=== PATIENT | male | born 1940 | race Caucasian/White ===

== ENCOUNTER 2021-04-16 11:04 | Outpatient (REF) | payer MEDICARE, SELFPAY ==
[2021-04-16 14:07] LABS: Hematocrit 50.1 % (42-52); Hemoglobin 15.9 g/dl (14.0-18.0); Mean Corpuscular HGB Conc 31.7 g/dl (31.0-36.0); Mean Corpuscular Hemoglobin 26.8 pg (27.0-33.0); Mean Corpuscular Volume 84.5 fL (80-98); Mean Platelet Volume 11.3 fL (9.4-12.4); Platelet Count 155 X10*3/uL (160-400); Red Blood Count 5.93 X10*6/uL (4.60-5.80); Red Cell Distribution Width 14.5 % (11.0-16.0); White Blood Count 5.9 X10*3/uL (4.8-10.8)
[2021-04-16 14:21] LABS: Alanine Aminotransferase 29 U/L (0-40); Albumin Level 4.5 g/dL (3.5-5.0); Alkaline Phosphatase 87 U/L (39-117); Anion Gap 15 (12-20); Aspartate Amino Transferase 32 U/L (5-37); Bilirubin Total 1.5 mg/dL (0.0-1.0); Blood Urea Nitrogen 34 mg/dL (9-16); Calcium 9.6 mg/dL (8.4-10.2); Carbon Dioxide 26 mmol/L (22-29); Chloride 103 mmol/L (96-108); Estimated Glomerular Filt Rate > 60; Glucose Random 78 mg/dL (60-115); Potassium 4.1 mmol/L (3.3-5.1); Sodium 140 mmol/L (135-145); Total Protein 7.3 g/dL (6.5-8.0)
== END 2021-04-16 11:05 | disposition home or self-care (01) ==
LOC: HO.HMGCLDS 11:04
PROVIDERS: PCP Internal Medicine; Visit Provider Internal Medicine
DX: I50.9 Heart failure, unspecified (principal)
CPT/HCPCS: 36415; 80053; 85027

== ENCOUNTER 2022-01-06 13:36 | Outpatient (REF) | payer MEDICARE, SELFPAY ==
--- NOTE | ~2022-01-06 | US_ITS ---
EXAMINATION: US DUPLEX LOWER EXTREMITY ARTERY/GRAFT LIMITED, bilateral CLINICAL INFORMATION: Chronic ulcer right leg. COMPARISON: None TECHNIQUE: Real-time ultrasound and Doppler techniques (integrating B-mode 2-D vascular images, Doppler spectral analysis and color flow Doppler imaging) were utilized to interrogate the lower extremities. FINDINGS: Right lower extremity: Common femoral artery: 73.0 cm/sec; multiphasic waveform Profunda artery: 79.6 cm/sec; multiphasic waveform Superficial femoral artery proximal: 71.3 cm/sec; multiphasic waveform Superficial femoral artery mid portion: 56.6 cm/sec; multiphasic waveform Superficial femoral artery distal: 58.8 cm/sec; multiphasic waveform Popliteal artery: 58.0 cm/sec; multiphasic waveform Posterior tibial artery: 63.2 cm/sec; multiphasic waveform Peroneal artery: 44.8 cm/sec; multiphasic waveform Left lower extremity: Common femoral artery: 77.4 cm/sec; multiphasic waveform Profunda artery: 63.7 cm/sec; multiphasic waveform Superficial femoral artery proximal: 60.4 cm/sec; multiphasic waveform Superficial femoral artery mid portion: 65.9 cm/sec; multiphasic waveform Superficial femoral artery distal: 62.0 cm/sec; multiphasic waveform Popliteal artery: 32.1 cm/sec; multiphasic waveform Posterior tibial artery: 56.4 cm/sec; multiphasic waveform Peroneal artery: 36.1 cm/sec; multiphasic waveform ADDITIONAL FINDINGS: Mild atherosclerotic plaquing bilaterally. US/US arterial duplex LE IMPRESSION: The arteries to the lower extremities are patent bilaterally with evidence of what appears to be mild peripheral arterial disease. Greater sensitivity and specificity can be obtained with pre-and post exercise PVRs with KELLY calculations. Also consider dedicated CTA for further anatomical detail.
== END 2022-01-06 13:37 | disposition home or self-care (01) ==
LOC: HO.US 13:36
PROVIDERS: Visit Provider Internal Medicine
DX: L97.919 Non-pressure chronic ulcer of unspecified part of right lower leg with unspecified severity (principal)
CPT/HCPCS: 93925

== ENCOUNTER 2022-04-08 12:36 | Outpatient (RCR) | payer MEDICARE, SELFPAY | END 2022-04-28 14:10 | disposition home or self-care (01) | LOC: HO.WCC 12:36 | PROVIDERS: PCP Internal Medicine; Visit Provider Physician Assistant | DX: L97.821 Non-pressure chronic ulcer of other part of left lower leg limited to breakdown of skin (principal); S51.801D Unspecified open wound of right forearm, subsequent encounter; I10 Essential (primary) hypertension; R60.0 Localized edema; Z95.0 Presence of cardiac pacemaker; Z95.1 Presence of aortocoronary bypass graft; Z79.2 Long term (current) use of antibiotics | CPT/HCPCS: 99214 ==

== ENCOUNTER 2022-08-01 12:46 | Outpatient (REF) | payer MEDICARE, SELFPAY ==
[2022-08-01 14:05] LABS: MANUAL DIFF FLAG NO
[2022-08-01 14:13] LABS: Basophils Percent Auto 0.3 % (0-2); Eosinophils Absolute Auto 0.1 X10*3/uL (0.0-0.4); Eosinophils Percent Auto 1.4 % (0-4); Hematocrit 48.3 % (42.0-52.0); Hemoglobin 14.9 g/dl (14.0-18.0); Imm Gran Abs Auto 0.02 X10*3/uL (0.00-0.03); Imm Gran Pct Auto 0.3 % (0.0-0.4); Lymphocytes Absolute Auto 0.7 X10*3/uL (1.2-4.9); Lymphocytes Percent Auto 11.3 % (20-40); Mean Corpuscular HGB Conc 30.8 g/dl (31.0-36.0); Mean Corpuscular Hemoglobin 25.6 pg (27.0-33.0); Mean Corpuscular Volume 82.8 fL (80.0-98.0); Mean Platelet Volume 10.5 fL (9.4-12.4); Monocytes Absolute Auto 0.5 X10*3/uL (0.1-1.2); Monocytes Percent Auto 8.8 % (2-11); Neutrophils Absolute Auto 4.6 x10*3/uL (2.0-8.3); Neutrophils Percent Auto 77.9 % (45-73); Platelet Count 121 X10*3/uL (160-400); Red Blood Count 5.83 X10*6/uL (4.60-5.80); Red Cell Distribution Width 18.4 % (11.0-16.0); White Blood Count 5.9 X10*3/uL (4.8-10.8)
[2022-08-01 15:28] LABS: Alanine Aminotransferase 24 U/L (0-40); Albumin Level 4.8 g/dL (3.5-5.0); Alkaline Phosphatase 81 U/L (39-117); Anion Gap 14 (12-20); Aspartate Amino Transferase 30 U/L (5-37); Bilirubin Total 1.9 mg/dL (0.0-1.0); Blood Urea Nitrogen 37 mg/dL (9-16); Calcium 9.9 mg/dL (8.4-10.2); Carbon Dioxide 31 mmol/L (22-29); Chloride 102 mmol/L (96-108); Estimated Glomerular Filt Rate 58; Glucose Fasting 87 mg/dL (60-99); Potassium 4.2 mmol/L (3.3-5.1); Sodium 143 mmol/L (135-145); TSH reflex Free T4 1.03 uIU/mL (0.32-4.0); Total Protein 7.8 g/dL (6.5-8.0)
== END 2022-08-01 12:47 | disposition home or self-care (01) ==
LOC: HO.HMGCLDS 12:46
PROVIDERS: PCP Internal Medicine; Visit Provider Internal Medicine
DX: I48.91 Unspecified atrial fibrillation (principal); I50.9 Heart failure, unspecified; E78.00 Pure hypercholesterolemia, unspecified
CPT/HCPCS: 36415; 80053; 84443; 85025

== ENCOUNTER 2023-06-10 10:22 | Outpatient (AMB) | payer MEDICARE, SELFPAY ==
[2023-06-10 10:27] VITALS: BP 126/72; PULSE 60; O2SAT 95; BMI 25.3
--- NOTE | 2023-06-10 10:27 | MHC.PC.OV ---
Vital Signs 06/10/23 10:27 Height 5 ft 5 in Weight 152 lb BMI 25.3 BP 126/72 Blood Pressure Location Rt brachial Position Sitting Pulse 60 Pulse Source Pulse Oximeter Pulse Oximetry (%) 95 Oxygen Delivery Method Room Air Intake Visit Reasons: Follow up Intake Note: Pt is here today for a follow up visit. Allergies spironolactone Adverse Reaction (Intermediate, Verified 06/10/23 10:30) BREAST TENDERNESS Tobacco use date assessed: 06/10/23 Fall risk assessment: 2 + Falls in past year Last assessed Fall Risk: 06/10/23 Dental Screening Dental Screen Date: 06/10/23 Did you have a dental visit in the last 12 months?: Yes Did you have a dental problem in the last 6 months where you did not have access to dental care?: No Was dental information given to patient?: Patient has dentist HPI Follow up HPI Details Pt presents for CHF, hyperlipid, BPH, stable on meds. Pt follows with [facility] cardiology and had echocardiogram in April which showed left ventricular ejection fraction 35-40% and no other new changes PFSH Medical History Chronic ulcer of right leg Postnasal drip Pacemaker Umbilical hernia BPH (benign prostatic hyperplasia) Atrial fibrillation Vitamin D deficiency CVA (cerebral vascular accident) Hypercholesterolemia CHF (congestive heart failure) Social History Housing: House Patient Tobacco Use Status: Never used Tobacco e-Cigarette/Vaping Use: Never Used Current occupational status: retired Cognitive needs: No Hearing needs: No Vision needs: Yes Questionnaire PHQ-9 Over the last 2 weeks, how often have you been bothered by any of the following problems? 1. Little interest or pleasure in doing things: not at all 2. Feeling down, depressed, or hopeless: not at all 3. Trouble falling or staying asleep, or sleeping too much: not at all 4. Feeling tired or having little energy: not at all 5. Poor appetite or overeating: not at all 6. Feeling bad about yourself - or that you are a failure or have let yourself or your family down: not at all 7. Trouble concentrating on things, such as reading the newspaper or watching television: not at all 8. Moving or speaking so slowly that other people could have noticed. Or the opposite - being so fidgety or restless that you have been moving around a lot more than usual: not at all 9. Thoughts that you would be better off or of hurting yourself in some way: not at all Total score: 0 Depression Screening Interpretation: Negative Source: Developed by Drs. Cliff Wilcox, Peyton Canela, Lio Benjamin and colleagues, with an educational domingo from [employer]. Thrive Questionnaire Date Thrive assessed: 06/10/23 I am a: Patient What is your living situation today?: I have a steady place to live Within the past 12 months, did the food you bought not last and you didn't have the money to get more?: Never true Within the past 12 months, did you worry whether your food would run out before you got money to buy more?: Never true Do you have trouble paying for medicines?: No Do you have trouble getting transportation to medical appointments?: No Do you have trouble paying your heating and electricity bill?: No Do you have trouble taking care of your child, family member or friend?: No Do you have trouble with day-to-day activities such as bathing, preparing meals, shopping, managing finances, etc.?: No Are you currently unemployed and looking for a job?: No Are you interested in more education?: No Please select the resources that you would like help with: None AUDIT C Alcohol Use Questionnaire (AUDIT-C) 1. How often do you have a drink containing alcohol?: Never 3. How often do you have six or more drinks on one occasion?: Never Total Score: 0 MONIKA-7 AMB Questionnaire MONIKA-7 Date MONIKA - 7 assessed: 06/10/23 Feeling nervous, anxious, or on edge: 0 = Not at all Not being able to stop or control worryin = Not at all Worrying too much about different things: 0 = Not at all Trouble relaxin = Not at all Being so restless that it is hard to sit still: 0 = Not at all Becoming easily annoyed or irritable: 0 = Not at all Feeling afraid as if something awful might happen: 0 = Not at all Total MONIKA-7 score (0-4 normal; 5-9 mild; 10-14 moderate; 15-21 severe): 0 Source: Developed by Drs. Cliff Wilcox, Peyton Canela, Lio Benjamin and colleagues, with an educational domingo from [employer]. Review of Systems Const All systems reviewed & are unremarkable except as noted in HPI and below Reports no additional complaints Eyes Reports no additional complaints ENT Reports no additional complaints Card Reports no additional complaints Resp Reports no additional complaints GI Reports no additional complaints Physical exam (Primary Care) Vital Signs: Last Vital Signs Pulse 60 06/10/23 10:27 BP 126/72 06/10/23 10:27 Pulse Ox 95 06/10/23 10:27 Oxygen Delivery Method Room Air 06/10/23 10:27 BMI result Body Mass Index 25.3 Tobacco/Smoking Status: Tobacco use Status Tobacco use date assessed 06/10/23 06/10/23 10:33 Patient Tobacco Use Status Never used Tobacco 06/10/23 10:33 e-Cigarette/Vaping Use Never Used 06/10/23 10:33 PHQ-9: PHQ-9 Score PHQ-9: Total score 0 06/10/23 10:33 Depression Screening Interpretation: Negative Thrive Assessment: Date of Thrive Assessment Date Thrive assessed 06/10/23 06/10/23 10:33 Const General: no acute distress HENMT Head: Yes normal to inspection Eyes General: appearance normal, both eyes and all related structures Resp Effort & Inspection: normal respiratory effort Auscultation: clear to auscultation bilaterally Cardio Rhythm: regular rhythm Heart sounds: S1 normal heart sound present and S2 normal heart sound present GI Inspection: Yes normal to inspection Palpation (GI): Soft to palpation Extrem Other: Chronic venous stasis changes General: Yes no clubbing, cyanosis or edema Assessment and Plan Assessment & Plan (1) Atrial fibrillation: Comment: s/p MAZE, off Coumadin, s/p pacemaker 2018 Dr. Marshall. Code(s): I48.91 - Unspecified atrial fibrillation Plan: Continue current medications follow-up with Cardiology (2) CHF (congestive heart failure): Comment: marked hypokinesis/akinesis apex, distal septum, prox septal hypertrophy, +2 [place] 09/2017 LVEF 40-45% Dr. Marshall Code(s): I50.9 - Heart failure, unspecified Plan: Continue current medications follow-up with Cardiology (3) BPH (benign prostatic hyperplasia): Comment: with urinary retention Code(s): N40.0 - Benign prostatic hyperplasia without lower urinary tract symptoms Plan: Continue current medications, follow-up in 6 months Coding Level of Care Code Est Pt Level 4 (63984) Diagnoses Atrial fibrillation I48.91 CHF (congestive heart failure) I50.9 BPH (benign prostatic hyperplasia) N40.0
== END 2023-06-10 11:26 | disposition home or self-care (01) ==
PROVIDERS: PCP Internal Medicine; Visit Provider Internal Medicine
DX: I48.91 Unspecified atrial fibrillation (principal); I50.9 Heart failure, unspecified; N40.0 Benign prostatic hyperplasia without lower urinary tract symptoms
CPT/HCPCS: 99214

== ENCOUNTER 2024-01-01 10:56 | Outpatient (AMB) | payer MEDICARE, SELFPAY ==
--- NOTE | 2024-01-01 11:02 | MHC.PC.OV ---
Vital Signs 01/01/24 11:05 Height 5 ft 5 in Weight 147 lb BMI 24.5 BP 122/70 Blood Pressure Location Lt brachial Position Sitting Pulse 86 Pulse Source Pulse Oximeter Pulse Oximetry (%) 99 Oxygen Delivery Method Room Air Intake Visit Reasons: 6 Month F/U Intake Note: Pt is here today for his 6 mo. f/u Allergies spironolactone Adverse Reaction (Intermediate, Verified 01/01/24 11:06) BREAST TENDERNESS Medication List - Last Reconciled 01/01/24 by Olga An MD aspirin (Adult Low Dose Aspirin) 81 mg PO .QOD atorvastatin 40 mg PO DAILY cholecalciferol (vitamin D3) 25 mcg PO DAILY finasteride 5 mg PO DAILY fluticasone propionate 50 mcg/actuation 1 spray intranasal DAILY furosemide 20 mg PO DAILY loratadine 10 mg PO DAILY metoprolol succinate ER 25 mg PO DAILY montelukast 10 mg PO BEDTIME tamsulosin 0.4 mg PO DAILY Tobacco use date assessed: 01/01/24 Fall risk assessment: 2 + Falls in past year Last assessed Fall Risk: 01/01/24 Dental Screening Dental Screen Date: 01/01/24 Did you have a dental visit in the last 12 months?: No Was dental information given to patient?: Patient has dentist HPI 6 Month F/U HPI Details Pt presents for f/u. He complains of chronic constipation and started taking stool softener 4 days ago with some relief. Patient denies abdominal pain hematochezia melena. hyperlipidemia and benign prostate hypertrophy are stable on current medications. He follows up with urologist for BPH and commodity manager for heart failure with reduced ejection fraction treated with metoprolol and furosemide. Patient follows up with commodity manager Dr. Marshall annually. Patient is established with [facility] and will see his primary care [facility]. [facility] Medical History (Updated 01/01/24 @ 16:14 by Olga An MD) Postnasal drip Pacemaker Umbilical hernia BPH (benign prostatic hyperplasia) Atrial fibrillation Vitamin D deficiency CVA (cerebral vascular accident) Hypercholesterolemia CHF (congestive heart failure) Social History Housing: House Patient Tobacco Use Status: Never used Tobacco e-Cigarette/Vaping Use: Never Used Current occupational status: retired Cognitive needs: No Hearing needs: No Vision needs: Yes Questionnaire PHQ-9 Over the last 2 weeks, how often have you been bothered by any of the following problems? 1. Little interest or pleasure in doing things: not at all 2. Feeling down, depressed, or hopeless: not at all 3. Trouble falling or staying asleep, or sleeping too much: not at all 4. Feeling tired or having little energy: not at all 5. Poor appetite or overeating: not at all 6. Feeling bad about yourself - or that you are a failure or have let yourself or your family down: not at all 7. Trouble concentrating on things, such as reading the newspaper or watching television: not at all 8. Moving or speaking so slowly that other people could have noticed. Or the opposite - being so fidgety or restless that you have been moving around a lot more than usual: not at all 9. Thoughts that you would be better off or of hurting yourself in some way: not at all Total score: 0 Depression Screening Interpretation: Negative Depression Screening Done: Yes 17827 - PHQ-9 Billing: Yes Source: Developed by Drs. Cliff Wilcox, Peyton Canela, Lio Benjamin and colleagues, with an educational domingo from [employer]. Thrive Questionnaire Date Thrive assessed: 01/01/24 I am a: Patient What is your living situation today?: I have a steady place to live Within the past 12 months, did the food you bought not last and you didn't have the money to get more?: Never true Within the past 12 months, did you worry whether your food would run out before you got money to buy more?: Never true Do you have trouble paying for medicines?: No Do you have trouble getting transportation to medical appointments?: No Do you have trouble paying your heating and electricity bill?: No Do you have trouble taking care of your child, family member or friend?: No Do you have trouble with day-to-day activities such as bathing, preparing meals, shopping, managing finances, etc.?: No Are you currently unemployed and looking for a job?: No Are you interested in more education?: No THRIVE Score: 0 AUDIT C Alcohol Use Questionnaire (AUDIT-C) 1. How often do you have a drink containing alcohol?: Never Total Score: 0 MONIKA-7 AMB Questionnaire MONIKA-7 Date MONIKA - 7 assessed: 01/01/24 Feeling nervous, anxious, or on edge: 0 = Not at all Not being able to stop or control worryin = Not at all Worrying too much about different things: 0 = Not at all Trouble relaxin = Not at all Being so restless that it is hard to sit still: 0 = Not at all Becoming easily annoyed or irritable: 0 = Not at all Feeling afraid as if something awful might happen: 0 = Not at all Total MONIKA-7 score (0-4 normal; 5-9 mild; 10-14 moderate; 15-21 severe): 0 Source: Developed by Drs. Cliff Wilcox, Peyton Canela, Lio Benjamin and colleagues, with an educational domingo from [employer]. Review of Systems Const All systems reviewed & are unremarkable except as noted in HPI and below Eyes Reports no additional complaints ENT Reports no additional complaints Resp Reports no additional complaints GI Reports no additional complaints Reports no additional complaints Physical exam (Primary Care) Vital Signs: Last Vital Signs Pulse 86 01/01/24 11:05 BP 122/70 01/01/24 11:05 Pulse Ox 99 01/01/24 11:05 Oxygen Delivery Method Room Air 01/01/24 11:05 BMI result Body Mass Index 24.5 Tobacco/Smoking Status: Tobacco use Status Tobacco use date assessed 01/01/24 01/01/24 11:07 Patient Tobacco Use Status Never used Tobacco 01/01/24 11:03 e-Cigarette/Vaping Use Never Used 01/01/24 11:03 PHQ-9: PHQ-9 Score PHQ-9: Total score 0 01/01/24 11:15 Depression Screening Interpretation: Negative Thrive Assessment: Date of Thrive Assessment Date Thrive assessed 01/01/24 01/01/24 11:08 Const General: no acute distress HENMT Head: Yes normal to inspection Eyes General: appearance normal, both eyes and all related structures Neck Neck: Yes supple Resp Effort & Inspection: normal respiratory effort Auscultation: clear to auscultation bilaterally Cardio Rhythm: regular rhythm Heart sounds: S1 normal heart sound present and S2 normal heart sound present GI Inspection: Yes normal to inspection Palpation (GI): Soft to palpation Percussion: Yes normal to percussion Auscultation: normal bowel sounds Extrem General: Yes no clubbing, cyanosis or edema Assessment and Plan Assessment & Plan (1) Neck pain: Code(s): M54.2 - Cervicalgia Plan: Patient will be referred to physical therapy for chronic neck pain (2) Atrial fibrillation: Comment: s/p MAZE, off Coumadin, s/p pacemaker 2018 Dr. Marshall. Code(s): I48.91 - Unspecified atrial fibrillation Plan: Follow-up with cardiology on metoprolol (3) CHF (congestive heart failure): Comment: marked hypokinesis/akinesis apex, distal septum, prox septal hypertrophy, +2 [place] 09/2017 LVEF 40-45% Dr. Marshall Code(s): I50.9 - Heart failure, unspecified Plan: Continue current medications (4) Hypercholesterolemia: Code(s): E78.00 - Pure hypercholesterolemia, unspecified Plan: Continue statin, patient will have a blood work done at [facility] (5) BPH (benign prostatic hyperplasia): Comment: with urinary retention Code(s): N40.0 - Benign prostatic hyperplasia without lower urinary tract symptoms Plan: Continue tamsulosin finasteride and follow-up with urology Orders: Orders PT Evaluation and Treatment Today M54.2 - Cervicalgia Medications: Discontinued loratadine Discontinued Reason: Doctor's Order 10 mg PO DAILY 30 tabs 2RF Coding Level of Care Code Est Pt Level 4 (02806) Diagnoses Neck pain M54.2 Atrial fibrillation I48.91 CHF (congestive heart failure) I50.9 Hypercholesterolemia E78.00 BPH (benign prostatic hyperplasia) N40.0
[2024-01-01 11:05] VITALS: BP 122/70; PULSE 86; O2SAT 99; BMI 24.5
== END 2024-01-01 16:15 | disposition home or self-care (01) ==
PROVIDERS: PCP Internal Medicine; Visit Provider Internal Medicine
DX: M54.2 Cervicalgia (principal); I48.91 Unspecified atrial fibrillation; I50.9 Heart failure, unspecified; E78.00 Pure hypercholesterolemia, unspecified; N40.0 Benign prostatic hyperplasia without lower urinary tract symptoms
CPT/HCPCS: 99214

== ENCOUNTER 2024-06-30 12:06 | Outpatient (AMB) | payer MEDICARE, OTHER, SELFPAY ==
--- NOTE | 2024-06-30 12:18 | A.OFFPC_ITS ---
Vital Signs 06/30/24 12:19 Height 5 ft 5 in Weight 144 lb 2 oz BMI 24.0 BP 110/66 Blood Pressure Location Rt brachial Position Sitting Pulse 60 Pulse Source Pulse Oximeter Pulse Oximetry (%) 98 Oxygen Delivery Method Room Air Intake Visit Reasons: Hospital follow up Intake Note: Pt is here today for a Hospital follow up visit. Allergies spironolactone Adverse Reaction (Intermediate, Verified 06/30/24 12:19) BREAST TENDERNESS Tobacco use date assessed: 06/30/24 Fall risk assessment: 2 + Falls in past year Last assessed Fall Risk: 06/30/24 Dental Screening Dental Screen Date: 01/01/24 HPI Hospital follow up HPI Details Patient presents for the follow-up of hospitalization at [facility] for worsening chronic lower extremity edema, venous stasis ulcers CHF exacerbation. Patient went to the inpatient rehab and was discharged home. He has a VNA services for wound care and physical therapy. Patient denies chest pain shortness or breath but has difficulty ambulating with a walker feel weaker. Patient could not tolerate low-dose of losartan because of severe hypotension and dizziness. He was started on Dapagliflozin. [facility] Medical History (Updated 06/30/24 @ 14:00 by Olga An MD) Postnasal drip Pacemaker Umbilical hernia BPH (benign prostatic hyperplasia) Atrial fibrillation Vitamin D deficiency CVA (cerebral vascular accident) Hypercholesterolemia CHF (congestive heart failure) Social History Housing: House Patient Tobacco Use Status: Never used Tobacco e-Cigarette/Vaping Use: Never Used service: Yes Current occupational status: retired Cognitive needs: No Hearing needs: No Vision needs: Yes Questionnaire Thrive Questionnaire Date Thrive assessed: 01/01/24 MONIKA-7 AMB Questionnaire MONIKA-7 Date MONIKA - 7 assessed: 01/01/24 Source: Developed by Drs. Cliff Wilcox, Peyton Canela, Lio Benjamin and colleagues, with an educational domingo from [facility]. Review of Systems Const All systems reviewed & are unremarkable except as noted in HPI and below Card Reports no additional complaints Resp Reports no additional complaints GI Reports no additional complaints Reports no additional complaints Physical exam (Primary Care) Vital Signs: Last Vital Signs Pulse 60 06/30/24 12:19 BP 110/66 06/30/24 12:19 Pulse Ox 98 06/30/24 12:19 Oxygen Delivery Method Room Air 06/30/24 12:19 BMI result Body Mass Index 24.0 Tobacco/Smoking Status: Tobacco use Status Tobacco use date assessed 06/30/24 06/30/24 12:21 Patient Tobacco Use Status Never used Tobacco 06/30/24 12:21 e-Cigarette/Vaping Use Never Used 06/30/24 12:21 Thrive Assessment: Date of Thrive Assessment Date Thrive assessed 01/01/24 06/30/24 12:21 Const General: no acute distress and ill appearing HENMT Head: Yes normal to inspection Neck Neck: Yes supple Resp Effort & Inspection: normal respiratory effort Auscultation: clear to auscultation bilaterally Cardio Rhythm: regular rhythm Heart sounds: S1 normal heart sound present and S2 normal heart sound present GI Inspection: Yes normal to inspection Palpation (GI): Soft to palpation Extrem Other: one pitting edema with chronic both lower extremities chronic venous stasis and ulcers with clean bases Coding Level of Care Code Est Pt Level 5 (72876) Complex EM visit Add On G2211 Diagnoses CHF (congestive heart failure) I50.9 Atrial fibrillation I48.91 Lower extremity edema R60.0 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 Marshall, Echo 05/2024 [facility] EF 30-35%, moderate global hypokinesis, the severe diastolic dysfunction and restricted LV filling pattern Code(s): I50.9 - Heart failure, unspecified Category: Medical Plan: Continue metoprolol furosemide and dapagliflozin, losartan will be restarted next week and blood pressure will be monitored by VNA. Patient used to take spironolactone was discontinued during the hospitalization (2) Atrial fibrillation: Comment: s/p MAZE, off Coumadin, s/p pacemaker 2018 Dr. Marshall. 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
[2024-06-30 12:19] VITALS: BP 110/66; PULSE 60; O2SAT 98; BMI 24.0
== END 2024-06-30 13:25 | disposition home or self-care (01) ==
PROVIDERS: PCP Internal Medicine; Visit Provider Internal Medicine
DX: I50.9 Heart failure, unspecified (principal); I48.91 Unspecified atrial fibrillation; I83.019 Varicose veins of right lower extremity with ulcer of unspecified site; I83.029 Varicose veins of left lower extremity with ulcer of unspecified site; L97.919 Non-pressure chronic ulcer of unspecified part of right lower leg with unspecified severity; L97.929 Non-pressure chronic ulcer of unspecified part of left lower leg with unspecified severity; R60.0 Localized edema

== ENCOUNTER → 2024-06-30 12:06 | Outpatient (BNVA) | payer MEDICARE, SELFPAY | PROVIDERS: PCP Internal Medicine; Visit Provider Internal Medicine | DX: I50.9 Heart failure, unspecified (principal); I48.91 Unspecified atrial fibrillation; R60.0 Localized edema; I83.029 Varicose veins of left lower extremity with ulcer of unspecified site; L97.919 Non-pressure chronic ulcer of unspecified part of right lower leg with unspecified severity; L97.929 Non-pressure chronic ulcer of unspecified part of left lower leg with unspecified severity; Z79.899 Other long term (current) drug therapy; Z95.0 Presence of cardiac pacemaker | CPT/HCPCS: 99212 ==